=== PATIENT | male | born 1985 | race Caucasian/White ===

== ENCOUNTER 2021-01-13 22:54 | Emergency (ER) | payer SELFPAY ==
--- NOTE | ~2021-01-13 | XR_ITS ---
EXAMINATION: CHEST AND NECK CLINICAL INFORMATION: Feels like something is caught in the throat COMPARISON: None TECHNIQUE: Single view chest, 2 views of the neck FINDINGS: The neck is unremarkable. No prevertebral soft tissue swelling fractures or subluxations are seen. No radiopaque foreign body is noted. Single view of the chest shows no significant abnormality involving the heart lungs mediastinum or bony thorax. XR/XR soft tissue neck IMPRESSION: Negative radiographs of the chest and neck. No foreign body is seen.
--- NOTE | ~2021-01-13 | XR_ITS ---
EXAMINATION: CHEST AND NECK CLINICAL INFORMATION: Feels like something is caught in the throat COMPARISON: None TECHNIQUE: Single view chest, 2 views of the neck FINDINGS: The neck is unremarkable. No prevertebral soft tissue swelling fractures or subluxations are seen. No radiopaque foreign body is noted. Single view of the chest shows no significant abnormality involving the heart lungs mediastinum or bony thorax. XR/XR chest 1V IMPRESSION: Negative radiographs of the chest and neck. No foreign body is seen.
[2021-01-13 22:58] VITALS: BP 135/81; PULSE 116; RESP 18; TEMP 36.4; O2SAT 95; BMI 34.4
--- NOTE | 2021-01-14 00:11 | ED.GENADULT ---
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 Reports started coughing/swallowed dip urine was coughing up phlegm/had nausea/vomiting. Reports symptomatic improvement at present still with residual foreign body sensation in throat. Reports mild SOB, improved from earlier. Denies fever, chills, chest pain Onset (ago): hour(s) Related Data Allergies Allergy/AdvReac Type Severity Reaction Status Date / Time No Known Allergies Allergy Unverified 01/13/21 23:38 Review of Systems Review of Systems: Constitutional: No Fever, No Chills, No Night Sweats, No Fatigue, No Malaise ENT/Mouth: No Ear Pain, No Nasal Congestion, No Hoarseness, + sore throat, + foreign body sensation, No Rhinorrhea, No Swallowing Difficulty Eyes: No Eye Pain, No Swelling, No Redness, No Discharge Cardiovascular: No Chest Pain, + SOB, No Dyspnea on Exertion, No Edema Respiratory: + Cough, No Sputum, No Wheezing, No Dyspnea Gastrointestinal: + Nausea, + Vomiting, No Diarrhea, No Constipation, No Abdominal pain Genitourinary:No Dysuria, No Urinary Frequency, No Hematuria,No Flank Pain Musculoskeletal: No joint pain, No Myalgias, No Joint Swelling Skin: No Skin Lesions, No rash Neuro: No Weakness, No Numbness, No Dizziness, No Headache Yes all other systems are reviewed and are negative [facility] Past Medical History Attestation statement: The following information was validated with the patient. Social History Social History Advance Directives: No Advance Directives Information Provided: Yes Physical Exam Vital Signs: Vital Signs: Last Vital Signs Temp 97.6 F 01/13/21 22:58 Pulse 87 01/14/21 00:41 Resp 17 01/14/21 00:41 BP 120/76 01/14/21 00:41 Pulse Ox 94 01/14/21 00:41 Body Mass Index 34.4 Const: General: cooperative, healthy appearing and no acute distress Orientation/consciousness: patient oriented x3 Limitations: no limitations HENMT: Head: Yes normal to inspection Ears: hearing grossly normal bilaterally General nose exam: Normal external nose present Face and sinus: Yes normal facial exam Mouth: Normal oral and palatal mucosa present, tongue normal and no drooling Throat: Yes posterior oropharynx normal, Yes tonsils normal, Yes uvula midline, No peritonsillar mass and No uvular edema Eyes: General: appearance normal, both eyes and all related structures EOM: EOMs intact bilaterally Neck: Neck: Yes normal visual inspection, Yes no lymphadenopathy, Yes trachea midline and Yes supple Resp: Effort & Inspection: normal respiratory effort, not labored, no respiratory distress, no stridor and not tachypneic Auscultation: clear to auscultation bilaterally, no crackles, no rales, no rhonchi and no wheezes Cardio: Rate: tachycardic Heart sounds: S1 normal heart sound present and S2 normal heart sound present GI: Inspection: Yes normal to inspection Palpation (GI): Soft to palpation, nontender, no guarding and not rigid Skin: Rashes: no rashes Wounds: no wounds Neuro: General: patient oriented x3 Gait exam (Neuro): Normal gait present Extrem: General: Yes normal to inspection Course Course Course Narrative: XR chest 1V / XR soft tissue neck IMPRESSION: Negative radiographs of the chest and neck. No foreign body is seen.? >> patient tolerated p.o. Maalox and viscous lidocaine without nausea or vomiting. 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 On exam tachycardic, anxious, lungs CTA, no stridor, no evidence of FB, talking in complete sentences/handling secretions her in concerned patient choked on tobacco. Low concern for allergic reaction Plan: Soft tissue neck/CXR Discharge Plan Discharge Clinical Impression: Foreign body sensation in throat Patient Disposition: Home, Self-Care Instructions: Foreign Body Ingestion (ED) Additional Instructions: Your x-rays were unremarkable Maalox and Pepcid will help with acid reflux they are available [id number] Please follow-up with ENT specialist as needed Make sure you are staying hydrated at home. if symptoms persist or worsen, your unable to eat or drink, have difficulty breathing, oral swelling feet return to the ED Referrals: Salty Sarkar [Physician] - 2 days
[2021-01-14] MEDS: Magnesium Hydrox/Alum Hydrox 30 ML ORAL.SUSP PO (00:18)
[2021-01-14] MEDS: Lidocaine HCl Viscous 2 % 15 ML SOLUTION MUCOUS MEM (00:18)
[2021-01-14] MEDS: Ondansetron ODT 4 MG TAB.RAPDIS TRANSLINGU (00:19)
[2021-01-14 00:41] VITALS: BP 120/76; PULSE 87; RESP 17; O2SAT 94
== END 2021-01-14 00:54 | disposition home or self-care (01) ==
PROVIDERS: Emergency Provider Student in an Organized Health Care Education/Training Program
DX: R06.02 Shortness of breath (principal); R09.89 Other specified symptoms and signs involving the circulatory and respiratory systems
CPT/HCPCS: 70360; 71045; 99284